=== PATIENT | male | born 1960 | race Caucasian/White ===

== ENCOUNTER 2017-01-26 20:34 | Emergency (ER) | payer OTHER ==
[~2017-01-26 20:34] MED LIST: AMOXPOW; ATOR10 PO; GLUCTAB OR; GLYBPOW; MUCINEX; OMEP20TA OR; RANI150 PO; [UNRECOGNIZED DRUG - REMARK]; [UNRECOGNIZED DRUG - REMARK]
[2017-01-26] MEDS ORDERED: METF1000 PO (20:54)
[2017-01-26] MEDS ORDERED: ATOR40TA16 PO (20:54)
[2017-01-26] MEDS ORDERED: VERA120T3 PO (20:54)
[2017-01-26] MEDS ORDERED: HYDR-3801 PO (20:54)
[2017-01-26] MEDS ORDERED: FEXO15TA PO (20:54)
[2017-01-26] MEDS ORDERED: GLYB2.5T3 PO (20:54)
[2017-01-26] MEDS ORDERED: PANT40TA3 PO (20:54)
--- NOTE | 2017-01-26 20:57 | PD ---
HPI Chief Complaint: Musculoskeletal Complaint Time Seen by Provider: 20:57 Travel History International Travel<30 days: No Contact w/Intl Traveler<30days: No History of Present Illness HPI 56-year-old male with PMH of HTN presents to the ED for evaluation of bilateral shoulder pain, left greater than right. Onset after colliding with another player while diving for a fly ball while playing softball just before arrival. On presentation he endorses 10/10 left shoulder pain with attempted range of motion. He also endorses mild tingling in the left hand. He denies numbness, tingling, weakness of the right hand. He does endorse limited range of motion of the right arm, stating that he is unable to raise the arm above shoulder level. He was evaluated on scene by a shoe designer who suspects that he has a dislocation of the left shoulder. No treatment before presentation. PFSH Past Medical History High Cholesterol: Yes Diabetes: Yes Diminished Hearing: No GERD: Yes Hypertension: Yes Social History Alcohol Use: Yes (2 BEERS OCCASIONALLY) Tobacco Use: No Substance Use: No Allergies-Medications (Allergen,Severity, Reaction): Coded Allergies: Enalapril (Verified Allergy, Severe, SWELLING OF FACE, 06/28/12) Reported Meds & Prescriptions Reported Meds & Active Scripts Active Reported Alanna Allergy (Fexofenadine HCl) 180 Mg Tab 180 Mg PO DAILY Atorvastatin (Atorvastatin Calcium) 40 Mg Tab 40 Mg PO HS Pantoprazole (Pantoprazole Sodium) 40 Mg Tab 40 Mg PO DAILY Glyburide 2.5 Mg Tab 2.5 Mg PO DAILY Take with meals at the same time each day Metformin (Metformin HCl) 1,000 Mg Tab 1,000 Mg PO BIDPC With meals Hydralazine (Hydralazine HCl) 100 Mg Tab 100 Mg PO BID Take with meals Verapamil (Verapamil HCl) 120 Mg Tab 240 Mg PO BID Review of Systems Except as stated in HPI: all other systems reviewed are Neg Physical Exam Exam Limitations: Clinical Condition Narrative GENERAL: Well-nourished, well-developed white male in no acute distress. SKIN: Focused skin assessment warm/dry. Superficial abrasions of bilateral knees and right elbow. HEAD: Normocephalic. EYES: No scleral icterus. No injection or drainage. NECK: Supple, trachea midline. No JVD or lymphadenopathy. CARDIOVASCULAR: Regular rate and rhythm without murmurs, gallops, or rubs. RESPIRATORY: Breath sounds equal bilaterally. No accessory muscle use. GASTROINTESTINAL: Abdomen soft, non-tender, nondistended. MUSCULOSKELETAL: No cyanosis, or edema. Focused upper extremity exam: 2+ radial pulse. Right shoulder with mild tenderness to palpation of the acromioclavicular joint. Strong equipment operat0r strength. Sensation intact to light touch distally. Cap refill less than 2 seconds. Focused left upper extremity exam: 2+ radial pulse. Deformity of the left shoulder as compared to the right. Tender to palpation of the head of the humerus. Attempted range of motion elicits pain. Strong equipment operat0r strength. Sensation intact to light touch distally. Cap refill less than 2 seconds. BACK: No obvious deformity. No CVA tenderness. Mild to moderate midline tenderness to palpation between the shoulder blades. Data Data Last Documented VS Vital Signs Date Time Temp Pulse Resp B/P Pulse Ox O2 Delivery O2 Flow Rate FiO2 01/26/17 22:20 92 6.00 01/26/17 21:59 Nasal Cannula 01/26/17 21:00 100.1 85 20 197/111 Orders Morphine Inj (Morphine Inj) (01/26/17 21:15) Shoulder, Limited(2vws) (01/26/17 21:03) Ice/Cold Pack (01/26/17 21:03) Shoulder, Complete (>2vws) (01/26/17 21:03) ^ Insert Iv (01/26/17 21:33) NPO (01/26/17 21:33) Propofol 200 Mg/20 Ml Inj (Diprivan 200 (01/26/17 21:45) Ondansetron Inj (Zofran Inj) (01/26/17 22:00) Hydromorphone Pf Inj (Dilaudid Pf Inj) (01/26/17 22:00) Shoulder, Limited(2vws) (01/26/17 22:18) MDM Medical Decision Making Medical Screen Exam Complete: Yes Emergency Medical Condition: Yes Differential Diagnosis Humeral fracture versus shoulder dislocation versus musculoskeletal pain versus other Narrative Course 56-year-old male with PMH of HTN presents to the ED for evaluation of bilateral shoulder pain, left greater than right. Onset after colliding with another player while diving for a fly ball while playing softball just before arrival. On presentation he endorses 10/10 left shoulder pain with attempted range of motion. He also endorses mild tingling in the left hand. He denies numbness, tingling, weakness of the right hand. He does endorse limited range of motion of the right arm, stating that he is unable to raise the arm above shoulder level. Vitals reviewed. Physical exam reveals a pleasant white male in no acute distress. There's deformity of the left shoulder as compared to the right which is highly suspicious for dislocation. Patient has equal equipment operat0r strength bilaterally and 2+ DP pulses bilaterally. Sensation is intact to light touch distally. The physical exam of the bilateral shoulders with somewhat limited by the patient's pain level. He was administered 4 mg morphine IM. Limited x-rays of the left shoulder reveal anterior dislocation. Right shoulder x-ray reveals no acute disease per radiology read. Even with the limited physical exam I suspect that the patient may have sustained a right rotator cuff injury. Order for IV insertion and nothing by mouth was placed. Patient was transferred to a medical bed under the care of Dr. Hairston. Please see his note for disposition. Jo Mcmanus Jan 26, 2017 20:57
[2017-01-26 21:00] VITALS: BP 197/111; PULSE 85; RESP 20; TEMP 100.1; O2SAT 97
[2017-01-26] MEDS ORDERED: MORPHINE SULFATE 4 MG/ML INJ IM ONE (21:15)
--- NOTE | 2017-01-26 21:29 | RADHPO ---
EXAM DATE/TIME: 01/26/2017 21:10 [facility] COMPARISON: No previous studies available for comparison. INDICATIONS : Fall. Complains of right shoulder. MEDICAL HISTORY : None. SURGICAL HISTORY : None. ENCOUNTER: Initial ACUITY: 1 day PAIN SCORE: 10/10 LOCATION: Right shoulder FINDINGS: Multiple view examination of the right shoulder demonstrates no evidence of fracture or dislocation. The glenohumeral and acromioclavicular joints are maintained. There is normal range of motion betwe en internal and external rotation. Bony mineralization is normal. CONCLUSION: No acute disease. Naveed Parsons MD on January 26, 2017 at 21:27 Board Certified Radiologist. This report was verified electronically.
--- NOTE | 2017-01-26 21:29 | RADHPO ---
EXAM DATE/TIME: 01/26/2017 21:05 [facility] COMPARISON: No previous studies available for comparison. INDICATIONS : Fall. Complains of left shoulder pain. MEDICAL HISTORY : None. SURGICAL HISTORY : None. ENCOUNTER: Initial ACUITY: 1 day PAIN SCORE: 10/10 LOCATION: Left shoulder FINDINGS: There is evidence of an acute anterior dislocation of the left humeral head in relation to the glenoi d. CONCLUSION: Acute anterior disc location of the left humeral head in relation to the glenoid. Naveed Parsons MD on January 26, 2017 at 21:26 Board Certified Radiologist. This report was verified electronically.
[2017-01-26] MEDS ORDERED: PROPOFOL 200 MG/20 ML AMP IV ONE (21:45)
[2017-01-26] MEDS ORDERED: HYDROmorphone HCL PF 1 MG/ML VIAL IV PUSH ONE (22:00)
[2017-01-26] MEDS ORDERED: ONDANSETRON HCL 4 MG/2 ML VIAL IV PUSH ONE (22:00)
[2017-01-26 22:20] VITALS: O2SAT 92
[2017-01-26 22:43] VITALS: BP 170/98; PULSE 74; RESP 16; O2SAT 98
--- NOTE | 2017-01-26 22:44 | PD ---
Physical Exam Date Seen by Provider: Jan 26, 2017 Time Seen by Provider: 22:42 Narrative This gentleman had presented with complaint of bilateral shoulder pain after collision with another person while playing softball. He has been found to have a dislocation of his left shoulder. He has never dislocated this shoulder before. He also has pain in his right shoulder. The x-ray on the right shoulder is negative but the patient is unable to abduct the shoulder to 90. Data Data Last Documented VS Vital Signs Date Time Temp Pulse Resp B/P Pulse Ox O2 Delivery O2 Flow Rate FiO2 01/26/17 22:43 74 16 170/98 98 Nasal Cannula 01/26/17 22:20 6.00 01/26/17 21:00 100.1 Orders Morphine Inj (Morphine Inj) (01/26/17 21:15) Shoulder, Limited(2vws) (01/26/17 21:03) Ice/Cold Pack (01/26/17 21:03) Shoulder, Complete (>2vws) (01/26/17 21:03) ^ Insert Iv (01/26/17 21:33) NPO (01/26/17 21:33) Propofol 200 Mg/20 Ml Inj (Diprivan 200 (01/26/17 21:45) Ondansetron Inj (Zofran Inj) (01/26/17 22:00) Hydromorphone Pf Inj (Dilaudid Pf Inj) (01/26/17 22:00) Shoulder, Limited(2vws) (01/26/17 22:18) Splint Or Brace Apply/Monitor (01/26/17 22:57) MDM Medical Record Reviewed: No Supervised Visit with MITRA: No Differential Diagnosis Differential includes fracture, dislocation Narrative Course X-ray shows a anterior dislocation of the left shoulder. The right shoulder is negative Procedures Procedure Narrative After informed consent was obtained from the patient he was sedated with 100 mg of diprivan. The shoulder was reduced with longitudinal traction. Post reduction x-ray shows good position of the humeral head and the glenoid fossa Diagnosis Primary Impression: Dislocation of left shoulder joint Additional Impression: Rotator cuff tear arthropathy of right shoulder Departure Forms: Tests/Procedures Additional Instruction: Follow-up with orthopedist Scripts Oxycodone-Acetaminophen (Percocet)7.5-325 mg Tab1 Tab PO Q4H PRN (PAIN) #30 TAB Ref 0 Prov:Jimenez Jin MD 01/26/17 Disposition: 01 DISCHARGE HOME Condition: Stable Jimenez Jin MD Jan 26, 2017 22:44
--- NOTE | 2017-01-26 22:48 | RADHPO ---
EXAM DATE/TIME: 01/26/2017 22:32 [facility] COMPARISON: SHOULDER LEFT LTD (2VWS), January 26, 2017, 21:05. INDICATIONS : Post reduction of left shoulder MEDICAL HISTORY : None. SURGICAL HISTORY : None. ENCOUNTER: Subsequent ACUITY: 1 day PAIN SCORE: 8/10 LOCATION: Left shoulder FINDINGS: There has been successful closed reduction of the left anterior shoulder dislocation. The humeral he ad is now anatomic in position in relation to the glenoid. CONCLUSION: Status post closed reduction of left anterior shoulder dislocation with humeral head anatomic in posi tion. Naveed Parsons MD on January 26, 2017 at 22:43 Board Certified Radiologist. This report was verified electronically.
[2017-01-26] MEDS ORDERED: PERC7.5T13 PO (22:59)
[2017-01-26 23:20] VITALS: BP 168/92
== END 2017-01-26 23:21 | disposition home or self-care (01) ==
LOC: PHEFT 20:34 → PHED 23:21
DX: S43.005A Unspecified dislocation of left shoulder joint, initial encounter (principal); M75.101 Unspecified rotator cuff tear or rupture of right shoulder, not specified as traumatic; W51.XXXA Accidental striking against or bumped into by another person, initial encounter; Y93.64 Activity, baseball
CPT/HCPCS: 23650; 73030; 96372; 96374; 96375; 99283; J1170; J2270; J2405